=== PATIENT | female | born 1930 | race Caucasian/White ===

== ENCOUNTER 2017-09-28 17:10 | Observation (INO) | payer OTHER ==
[~2017-09-28] VITALS: Ht 160 cm; Wt 53.5 kg
[2017-09-28 18:06] LABS: Basophils # (auto) 0 uL; Basophils % (auto) 0.2 % (0.0-2.0); Eosinophils # (auto) 0.2 uL; Eosinophils % (auto) 1.7 % (0.0-7.0); Hematocrit 41.1 % (36.0-46.0); Hemoglobin 13.5 g/dL (12.2-16.2); Lymphocytes # (auto) 0.9 uL; Mean Corpuscular Hemoglobin 30.6 pg (28.0-32.0); Mean Corpuscular Hgb Conc. 32.9 g/dL (32.0-36.0); Mean Corpuscular Volume 93.2 fL (80.0-100.0); Monocytes # (auto) 0.8 uL; Monocytes % (auto) 5.1 % (0.0-12.0); Neutrophils # (auto) 12.8 uL; Platelet Count (auto) 261 10^3/uL (140-450); Red Blood Cells 4.41 10^6/uL (4.0-5.20); Red Cell Distribution Width 13.8 % (11.8-14.3); White Blood Cell 14.8 10^3/uL (4.4-10.8)
[2017-09-28 18:24] LABS: Albumin 3.7 g/dL (3.4-5.0); BUN/Creatinine Ratio 28.3; Calcium 8.8 mg/dL (8.5-10.1); Potassium 4.1 mmol/L (3.5-5.1); Total Protein 7.4 g/dL (6.4-8.2)
[2017-09-28] MEDS ORDERED: SODIUM CHLORIDE 0.9% 1,000 ML IVB ONE (18:44)
[2017-09-28] MEDS ORDERED: ONDANSETRON HCL 4 MG/2 ML VIAL IV ONE (18:45)
[2017-09-28 19:26] LABS: Magnesium 2.3 mg/dL (1.6-2.6)
[2017-09-28 19:42] LABS: INR 1.04 (0.9-1.15); Partial Thromboplastin Time 22.5 sec (23.78-33.04); Prothrombin Time 11.1 sec (9.27-12.13)
[2017-09-28] MEDS ORDERED: SODIUM CHLORIDE 0.9% 1,000 ML IV ONE (20:30)
[2017-09-28] MEDS ORDERED: SODIUM CHLORIDE 0.9% 1,000 ML IV SCH (20:30)
[2017-09-28] MEDS ORDERED: metroNIDAZOLE 500MG/100ML 100 ML IV ONE ×2 (21:15)
[2017-09-28] MEDS ORDERED: CIPROFLOXACIN 400MG/200ML 200 ML IV ONE (22:15)
[2017-09-28] MEDS ORDERED: SOD CHL 0.45% 1,000 ML IV ONE (22:15)
[2017-09-29 07:17] VITALS: BP 133/59
== END 2017-09-29 07:38 | disposition home or self-care (01) | DRG 392 ==
LOC: ER 17:10 → EDBD 17:10 → OVERFLOW 18:45 → ER 09-29 07:38
PROVIDERS: ADMIT Family Medicine; ATTEND Family Medicine
DX: K52.9 Noninfective gastroenteritis and colitis, unspecified (principal); N18.3 Chronic kidney disease, stage 3 (moderate); I12.9 Hypertensive chronic kidney disease with stage 1 through stage 4 chronic kidney disease, or unspecified chronic kidney disease; Z85.828 Personal history of other malignant neoplasm of skin; Z82.49 Family history of ischemic heart disease and other diseases of the circulatory system
CPT/HCPCS: 36415; 71045; 74176; 80053; 82150; 83605; 83690; 83735; 84484; 85025; 85610; 85730; 87040; 93005; 96361; 96365; 96367; 96375; 99285; G0378; J0744; J3490; J7030